=== PATIENT | male | born 1980 | race Two or more races ===

== ENCOUNTER 2024-08-10 11:33 | Outpatient (RCR) | payer MEDICAID, SELFPAY ==
--- NOTE | 2024-08-10 12:30 | XR_ITS ---
Examination: DEBORA, hepatobiliary radioisotope scan Gallbladder ejection fraction study. Date and time of exam: August 10, 2024 1133 hours INDICATIONS: Abnormal liver function tests on laboratory examination this week including hyperlipidemia Technique: 5.8 mCi of 99M Hepatolite administered. Serial imaging then obtained from immediate through 60 minutes. 1.8 mcg selective catheter Kinevac administered for gallbladder ejection fraction study. Findings: Radioisotope activity within the liver is reasonably homogenous. Gallbladder, common bile duct small bowel activity noted Impression: Gallbladder activity Abnormal gallbladder ejection fraction 4%, normal greater than 35%
== END 2024-08-15 23:59 | disposition home or self-care (01) ==
LOC: SNUC 11:33
PROVIDERS: PCP Family Medicine; Referring Provider Family Medicine; Visit Provider Family Medicine
DX: R93.89 Abnormal findings on diagnostic imaging of other specified body structures (principal)
CPT/HCPCS: 78227; A9537; J2805